=== PATIENT | female | born 1985 | race Caucasian/White ===

== ENCOUNTER 2016-11-01 15:39 | Emergency (ER) | payer BC ==
[~2016-11-01] VITALS: Ht 175.3 cm; Wt 103.7 kg
[2016-11-01 15:48] VITALS: TEMP 36.9; Ht 175.3 cm; Wt 103.7 kg
[2016-11-01] MEDS ORDERED: MONT1TAB3 PO (15:55)
[2016-11-01] MEDS ORDERED: FLUT0.15 NAE (15:57)
[2016-11-01] MEDS ORDERED: LEVO-371 PO (15:57)
[2016-11-01] MEDS ORDERED: MULTTAB58 PO (15:57)
[2016-11-01] MEDS ORDERED: DiphenhydrAMINE HCL 50 MG/ML VIAL IV STA (16:05)
[2016-11-01] MEDS ORDERED: DEXAMETHASONE SOD INJ 4 MG/ML VIAL IV STA (16:05)
[2016-11-01] MEDS ORDERED: FAMOTIDINE 20MG/102 ML D5W IV STA (16:05)
--- NOTE | 2016-11-01 16:32 | EMERGENCY ROOM VISIT NOTE ---
History First contact with patient: 15:55 Chief Complaint: ALLERGIC REACTION Stated Complaint: BEE STING- TONGUE ITCHES Nursing Triage Summary: possible allergic reaction to bee sting. History of Present Illness The patient is a 31 year old female who presents to the Emergency Room with complaints of a possible allergic reaction. The patient states that she was stung by a bee on her left leg 1.5 hours prior to arrival. She states that she developed a small welt where the sting occurred and has now developed an itchy tongue and throat. She denies any shortness of breath, difficulty swallowing or facial swelling. She denies any nausea or vomiting. She has not taken any medication at home. She does have a history of seasonal allergies, but denies any other history of allergies or anaphylaxis. She takes Singulair daily as well as a daily antihistamine. She rates her overall discomfort a 2/10. Review of Systems A complete 10 point review of systems was reviewed with the patient with pertinent positives and negatives as per history of present illness. All else were negative. Past Medical/Surgical History Medical Problems: (1) Asthma (2) Asthma Social History Smoking Status: Never Smoker Current/Historical Medications Scheduled Fluticasone Propionate (Nasal) (Flonase Allergy Relief), 2 SPRAYS SHANTE QAM Levocetirizine Dihydrochloride (Xyzal), 1 TAB PO HS Montelukast Sodium (Singulair), 10 MG PO HS Multiple Vitamin (Multivitamin), 1 TAB PO HS Scheduled PRN Epinephrine (Epipen), 0.3 MG IM UD PRN for ALLERGIC REACTION Physical Exam Vital Signs Date Time Temp Pulse Resp B/P (MAP) Pulse Ox O2 Delivery O2 Flow Rate FiO2 11/01/16 17:39 92 16 133/80 100 Room Air 11/01/16 16:25 98 18 138/84 100 11/01/16 15:51 100 Room Air 11/01/16 15:48 36.9 98 16 125/76 100 Room Air Physical Exam VITALS: Vitals are noted on the nurse's note and reviewed by myself. Vital signs stable. GENERAL: This is a 31-year-old female, in no acute distress, nondiaphoretic, well-developed well-nourished. SKIN: There is a small erythematous raised area to the left outer thigh which measures 3 cm in diameter. There are no urticaria. FACE: No periorbital or perioral edema. EARS: External auditory canals clear, tympanic membranes pearly [place]un[place] without erythema or effusion bilaterally. EYES: Pupils equal round and reactive to light and accommodation. MOUTH: Mucous membranes moist. No swelling of the tongue noted. Airway patent. NECK: Supple without nuchal rigidity. HEART: Regular rate and rhythm without murmurs gallops or rubs. LUNGS: Clear to auscultation bilaterally without wheezes, rales or rhonchi. No retractions or accessory muscle use. ABDOMEN: Soft, nontender. NEURO: Patient was alert and oriented to person place and time. Medical Decision & Procedures Medications Administered Medications (Trade) Dose Ordered Sig/Cecil Route Start Time Stop Time Status Last Admin Dose Admin Dexamethasone Sodium Phosphate (Decadron Inj) 10 mg NOW STAT IV 11/01/16 16:05 11/01/16 16:06 DC 11/01/16 16:19 10 MG Diphenhydramine HCl (Benadryl Inj) 50 mg NOW STAT IV 11/01/16 16:05 11/01/16 16:06 DC 11/01/16 16:16 50 MG Famotidine (Pepcid 20mg/100 ml) 20 mg ONE STAT IV 11/01/16 16:05 11/01/16 16:06 DC 11/01/16 16:31 20 MG Medical Decision Differential diagnosis includes allergic reaction, allergic dermatitis, anaphylaxis, among others. The patient was evaluated as above. There is no evidence of anaphylaxis on exam. She does have some itching of her throat and tongue concerning for an allergic reaction. She was treated with IV Decadron, Benadryl, and Pepcid with significant relief of her symptoms. She was instructed on OTC medications to take to prevent rebound reactions. She was given a prescription for an EpiPen in case of future reactions. She verbalized understanding of my assessment and treatment plan and was discharged home in good condition. Impression Primary Impression: Allergic reaction Departure Information Dispostion Home / Self-Care Condition GOOD Prescriptions Epinephrine (EPIPEN) 0.3 Mg/0.3 Ml Inj 0.3 MG IM UD Y for ALLERGIC REACTION, #1 BOX Prov: Cathi Jordan ., HETAL 11/01/16 Referrals Jin Walter M.D. (PCP) Patient Instructions EpiPen Auto Injector Cecilio, Al[facility] Additional Instructions You have been treated in the Emergency Department for an Allergic Reaction. You have been treated and monitored in the Emergency Department appropriately. You should take Benadryl (diphenhydramine) 25-50 mg orally every 4-6 hours for the next 2-3 days. This medication is [id number] and you will NOT need a prescription to purchase this at your local pharmacy. You should continue taking the Benadryl for the COMPLETION of the 2-3 days. This is to prevent a rebound allergic reaction in the event that allergens are still present in your system. You have been prescribed an EpiPen to be used in the case of an Emergency. Please read the packet you have been given and ask your pharmacist for instructions on proper administration. If you begin to experience the symptoms that brought you to the Emergency Department today, you should give yourself the injection and then report IMMEDIATELY to the Emergency Department for further evaluation and treatment. As with every Emergency Department visit, you should follow-up with your primary care provider in 2-3 days for reevaluation. Return to the Emergency Department if your current symptoms worsen despite treatment course outlined above, or if you develop any of the following symptoms : wheezing, tongue or face swelling, tightness in your throat, shortness of breath, or fainting. Problem Qualifiers Primary Impression: Allergic reaction Encounter type: initial encounter Qualified Codes: T78.40XA - Allergy, unspecified, initial encounter
[2016-11-01] MEDS ORDERED: EPP3/2 IM (17:22)
[2016-11-01 17:39] VITALS: BP 133/80; PULSE 92; O2SAT 100
== END 2016-11-01 17:47 | disposition home or self-care (01) ==
LOC: C.EDB 15:45 → C.EDD 17:47
DX: T63.441A Toxic effect of venom of bees, accidental (unintentional), initial encounter (principal); Z79.899 Other long term (current) drug therapy; J45.909 Unspecified asthma, uncomplicated